=== PATIENT | male | born 1985 | race Caucasian/White ===

== ENCOUNTER 2019-04-13 19:20 | Emergency (ER) | payer OTHER ==
[~2019-04-13] VITALS: Ht 167.6 cm; Wt 87.7 kg
[2019-04-13] MEDS ORDERED: IBUP40TA PO (19:25)
[2019-04-13] MEDS ORDERED: LOTRCRE TOP (21:18)
[2019-04-13 21:40] VITALS: BP 135/61
== END 2019-04-13 21:43 | disposition home or self-care (01) ==
LOC: M ED 19:20
DX: R21 Rash and other nonspecific skin eruption (principal); Z88.1 Allergy status to other antibiotic agents